=== PATIENT | male | born 1950 | race Caucasian/White ===

== ENCOUNTER 2019-11-10 19:03 | Observation (INO) ==
[2019-11-10] MEDS ORDERED: Ipratropium/Albuterol Neb 3 ML IH ONE (19:25)
[2019-11-10] MEDS ORDERED: 0.9 % Sodium Chloride 500 ML IVC ONE (19:25)
[2019-11-10 19:52] LABS: Basophils % 0.4 %; Hematocrit 47.9 % (37.5-50.1); Hemoglobin 16.2 g/dL (12.9-16.9); Immature Granulocytes % 0.6 % (0-4); Lymphocytes # 0.8 K/mcL (0.6-4.6); Lymphocytes % 8.8 %; Mean Corpuscular HGB Conc 33.8 g/dL (31.6-35.5); Mean Corpuscular Hemoglobin 29.9 pg (28.0-33.3); Mean Corpuscular Volume 88.4 fL (83.0-100.0); Mean Platelet Volume 10.3 fL (9.4-12.4); Monocytes # 1.3 K/mcL (0.0-1.3); Monocytes % 14.6 %; Neutrophils # 6.9 K/mcL (1.6-8.9); Platelet Count 201 K/mcL (140-400); Red Blood Count 5.42 M/mcL (4.19-5.50); Red Cell Distribution Width 11.8 % (11.5-14.5); Segmented Neutrophils % 75.6 %; White Blood Count 9.1 K/mcL (4.3-11.1)
[2019-11-10 20:02] LABS: Prothrombin Time 11.5 Seconds (9.4-12.1)
[2019-11-10 20:18] LABS: Alanine Aminotransferase 13 Units/L (7-52); Albumin 4.6 g/dL (3.5-5.7); Albumin/Globulin Ratio 1.4 (1.1-2.2); Alkaline Phosphatase 86 Units/L (34-104); Aspartate Amino Transferase 38 Units/L (13-39); BUN/Creatinine Ratio 20 (6-26); Bilirubin,Total 0.8 mg/dL (0.3-1.0); Blood Urea Nitrogen 23 mg/dL (8-23); Calcium 9.5 mg/dL (8.6-10.3); Carbon Dioxide 25 mEq/L (23-29); Chloride 90 mEq/L (98-107); Globulin 3.3 g/dL (2.4-3.5); Glucose 474 mg/dL (70-105); Osmolality,Calculated 293 (280-300); Potassium 3.6 mEq/L (3.5-5.1); Sodium 129 mEq/L (136-145); Total Protein 7.9 g/dL (6.4-8.9); Troponin I < 0.03 ng/mL (< 0.04); eGFR For African Americans > 60 (> 60); eGFR For Non-African Americans > 60 (> 60)
[2019-11-10 20:31] LABS: Thyroid Stimulating Hormone 0.321 mcIU/mL (0.340-5.600)
[2019-11-10 21:55] LABS: ABG Base Excess 2 mEq/L (-2 to 3); ABG HCO3 26 mEq/L (21-27); ABG Oxygen Saturation 99 % (95-98); ABG PCO2 40 mmHg (35-45); ABG PH 7.43 pH Units (7.32-7.45); ABG PO2 156 mmHg (85-104); ABG TCO2 27 mEq/L (20-26)
[2019-11-10 22:53] LABS: Bacteria,Urine Few per hpf (None-Few); Bilirubin,Urine Negative (Negative); Blood,Urine Large (Negative); Clarity,Urine Clear (Clear); Color,Urine Light-Yellow (Yellow); Glucose,Urine (UA) >=1000 mg/dL (Normal); Ketones,Urine 20 mg/dL (Negative); Leukocyte Esterase,Urine Negative (Negative); Mucus,Urine Few per lpf (None-Few); Nitrite,Urine Negative (Negative); PH,Urine 5.5 pH Units (5.0-8.0); Protein,Urine 70 mg/dL (Neg-Trace); Specific Gravity,Urine > 1.030 (1.010-1.025); Squamous Epithelial Cell,Urine Few per hpf (None-Few); Urobilinogen,Urine Normal (Normal)
[2019-11-10 23:41] LABS: VBG HCO3 26 mEq/L (21-27); VBG PCO2 42 mmHg (41-51); VBG PH 7.41 pH Units (7.32-7.42); VBG PO2 69 mmHg (25-50)
[2019-11-11] MEDS ORDERED: Albuterol 2.5 MG/3 ML NEBULIZER IH ONE (00:08)
[2019-11-11] MEDS ORDERED: *HR* Promethazine 25 MG/ML VIAL IVP PRN (00:37)
[2019-11-11] MEDS ORDERED: Naloxone 0.4 MG/ML INJ IVP PRN (00:37)
[2019-11-11] MEDS ORDERED: Perflutren Lipid Microsphere 1.3 ML in 0.9 % Sodium Chloride 8.7 ML IVP PRN (00:43)
[2019-11-11] MEDS ORDERED: Dextrose Gel 15 GM/37.5 ML TUBE PO PRN ×2 (00:48)
[2019-11-11] MEDS ORDERED: D5% in Water 1,000 ML IVC PRN (00:48)
[2019-11-11] MEDS ORDERED: *HR* Dextrose 50 % in Water (Vial) 50 ML VIAL IVP PRN (00:48)
[2019-11-11] MEDS ORDERED: Azithromycin 500 MG in 0.9 % Sodium Chloride 250 ML IVPB SCH (02:48)
[2019-11-11 03:26] LABS: BUN/Creatinine Ratio 24 (6-26); Blood Urea Nitrogen 21 mg/dL (8-23); Calcium 8.8 mg/dL (8.6-10.3); Carbon Dioxide 23 mEq/L (23-29); Chloride 96 mEq/L (98-107); Cholesterol 150 mg/dL (< 200); Creatine Kinase 855 Units/L (30-223); Glucose 284 mg/dL (70-105); HDL Cholesterol 30 mg/dL (40-59); LDL Cholesterol,Calculated 83 mg/dL (< 100); Magnesium 1.7 mg/dL (1.6-2.6); Osmolality,Calculated 287 (280-300); Phosphorous 2.1 mg/dL (2.7-4.5); Potassium 3.3 mEq/L (3.5-5.1); Sodium 132 mEq/L (136-145); Triglycerides 183 mg/dL (< 150); eGFR For African Americans > 60 (> 60); eGFR For Non-African Americans > 60 (> 60)
[2019-11-11 03:48] LABS: Folate 17.2 ng/mL (3.0-16.0)
[2019-11-11] MEDS: *HR* Heparin 5,000 UNIT/ML VIAL SQ SCH ×4 (03:54→22:35)
[2019-11-11] MEDS: Insulin LISPRO 300 UNITS/3 ML VIAL SQ SCH ×5 (04:04→22:34)
[2019-11-11 05:19] LABS: Estimated Average Glucose 312 mg/dl
[2019-11-11] MEDS ORDERED: Potassium Chloride Elixir 20 MEQ/15 ML UDC PO ONE (07:44)
[2019-11-11] MEDS: Acetaminophen 325 MG TABLET PO PRN ×2 (08:58→19:41)
[2019-11-11] MEDS: cefTRIAXone 1,000 MG in Water for inj. (sterile) 10 ML IVP SCH (08:58)
[2019-11-11] MEDS: 0.9 % Sodium Chloride 1,000 ML IVC SCH (08:59)
[2019-11-11] MEDS ORDERED: Isovue-370 500 ML BOTTLE IVP ONE (10:38)
[2019-11-11 12:54] LABS: VBG HCO3 25 mEq/L (21-27); VBG PCO2 33 mmHg (41-51); VBG PH 7.48 pH Units (7.32-7.42); VBG PO2 244 mmHg (25-50)
[2019-11-11] MEDS: Cyanocobalamin (B-12) 1,000 MCG/ML VIAL SQ SCH (13:16)
[2019-11-11] MEDS ORDERED: Acyclovir 200 MG CAPSULE PO SCH (16:00)
[2019-11-11] MEDS: methylPREDNISolone 125 MG/2 ML VIAL IVP SCH (16:57)
[2019-11-11] MEDS: Acyclovir 200 MG CAPSULE PO SCH ×2 (16:57→19:40)
[2019-11-11] MEDS: Nystatin SUSP 5 ML UD.LIQ PO SCH ×2 (19:40→19:44)
[2019-11-11] MEDS ORDERED: Insulin DETEMIR 100 UNIT/ML X5UNITS SQ SCH (21:00)
[2019-11-11] MEDS: Insulin DETEMIR 100 UNIT/ML X5UNITS SQ SCH (22:35)
[2019-11-12] MEDS: Acyclovir 200 MG CAPSULE PO SCH ×5 (01:02→20:11)
[2019-11-12] MEDS: 0.9 % Sodium Chloride 1,000 ML IVC SCH (02:31)
[2019-11-12] MEDS: Acetaminophen 325 MG TABLET PO PRN (03:51)
[2019-11-12 05:22] LABS: Basophils # 0.1 K/mcL (0.0-0.2); Basophils % 0.5 %; Hematocrit 45.6 % (37.5-50.1); Hemoglobin 15.1 g/dL (12.9-16.9); Immature Granulocytes % 0.5 % (0-4); Lymphocytes # 1.1 K/mcL (0.6-4.6); Lymphocytes % 11.1 %; Mean Corpuscular HGB Conc 33.1 g/dL (31.6-35.5); Mean Corpuscular Hemoglobin 30.6 pg (28.0-33.3); Mean Corpuscular Volume 92.5 fL (83.0-100.0); Mean Platelet Volume 10.5 fL (9.4-12.4); Monocytes # 0.6 K/mcL (0.0-1.3); Monocytes % 6.3 %; Neutrophils # 7.9 K/mcL (1.6-8.9); Platelet Count 189 K/mcL (140-400); Red Blood Count 4.93 M/mcL (4.19-5.50); Red Cell Distribution Width 11.7 % (11.5-14.5); Segmented Neutrophils % 81.6 %; White Blood Count 9.7 K/mcL (4.3-11.1)
[2019-11-12 05:42] LABS: Alanine Aminotransferase 11 Units/L (7-52); Albumin 3.7 g/dL (3.5-5.7); Albumin/Globulin Ratio 1.4 (1.1-2.2); Alkaline Phosphatase 66 Units/L (34-104); Aspartate Amino Transferase 26 Units/L (13-39); BUN/Creatinine Ratio 27 (6-26); Bilirubin,Total 0.6 mg/dL (0.3-1.0); Blood Urea Nitrogen 21 mg/dL (8-23); Calcium 8.6 mg/dL (8.6-10.3); Carbon Dioxide 28 mEq/L (23-29); Chloride 101 mEq/L (98-107); Globulin 2.7 g/dL (2.4-3.5); Glucose 187 mg/dL (70-105); Osmolality,Calculated 292 (280-300); Potassium 3.9 mEq/L (3.5-5.1); Sodium 137 mEq/L (136-145); Total Protein 6.4 g/dL (6.4-8.9); eGFR For African Americans > 60 (> 60); eGFR For Non-African Americans > 60 (> 60)
[2019-11-12] MEDS: *HR* Heparin 5,000 UNIT/ML VIAL SQ SCH ×3 (05:55→21:37)
[2019-11-12] MEDS: Nystatin SUSP 5 ML UD.LIQ PO SCH ×4 (08:45→21:35)
[2019-11-12] MEDS: Insulin LISPRO 300 UNITS/3 ML VIAL SQ SCH ×4 (08:45→21:36)
[2019-11-12] MEDS: cefTRIAXone 1,000 MG in Water for inj. (sterile) 10 ML IVP SCH (08:48)
[2019-11-12] MEDS: Cyanocobalamin (B-12) 1,000 MCG/ML VIAL SQ SCH (08:52)
[2019-11-12] MEDS ORDERED: methylPREDNISolone 125 MG/2 ML VIAL IVP SCH (09:00)
[2019-11-12] MEDS: Aspirin Enteric Coated 81 MG Tablet PO SCH (09:04)
[2019-11-12] MEDS: Pregabalin 50 MG CAPSULE PO SCH ×3 (09:04→21:36)
[2019-11-12] MEDS: lisinopriL 10 MG TABLET PO SCH (09:04)
[2019-11-12] MEDS: methylPREDNISolone 125 MG/2 ML VIAL IVP SCH (09:10)
[2019-11-12] MEDS: Metoprolol XL (24 HR) Succ 50 MG TAB.ER.24H PO SCH (09:11)
[2019-11-12] MEDS: Budesonide/Formoterol 160/4.5 1 PUFF INH IH SCH ×2 (11:36→21:27)
[2019-11-12] MEDS: Tiotropium 18 MCG inhalation IH SCH (11:36)
[2019-11-12] MEDS: Insulin DETEMIR 100 UNIT/ML X5UNITS SQ SCH (21:38)
[2019-11-13] MEDS: Acyclovir 200 MG CAPSULE PO SCH ×4 (00:09→16:08)
[2019-11-13] MEDS: *HR* Heparin 5,000 UNIT/ML VIAL SQ SCH ×2 (06:22→14:24)
[2019-11-13] MEDS: Budesonide/Formoterol 160/4.5 1 PUFF INH IH SCH (08:05)
[2019-11-13] MEDS: Tiotropium 18 MCG inhalation IH SCH (08:06)
[2019-11-13 08:46] LABS: BUN/Creatinine Ratio 27 (6-26); Blood Urea Nitrogen 21 mg/dL (8-23); Calcium 8.6 mg/dL (8.6-10.3); Carbon Dioxide 30 mEq/L (23-29); Chloride 103 mEq/L (98-107); Glucose 158 mg/dL (70-105); Osmolality,Calculated 292 (280-300); Potassium 3.2 mEq/L (3.5-5.1); Sodium 138 mEq/L (136-145); eGFR For African Americans > 60 (> 60); eGFR For Non-African Americans > 60 (> 60)
[2019-11-13] MEDS: methylPREDNISolone 125 MG/2 ML VIAL IVP SCH (08:52)
[2019-11-13] MEDS: Nystatin SUSP 5 ML UD.LIQ PO SCH ×2 (08:54→12:05)
[2019-11-13] MEDS: lisinopriL 10 MG TABLET PO SCH (08:57)
[2019-11-13] MEDS: Aspirin Enteric Coated 81 MG Tablet PO SCH (08:57)
[2019-11-13] MEDS: Pregabalin 50 MG CAPSULE PO SCH ×2 (08:57→14:25)
[2019-11-13] MEDS: Metoprolol XL (24 HR) Succ 50 MG TAB.ER.24H PO SCH (08:57)
[2019-11-13] MEDS: Cyanocobalamin (B-12) 1,000 MCG/ML VIAL SQ SCH (08:58)
[2019-11-13] MEDS: Insulin LISPRO 300 UNITS/3 ML VIAL SQ SCH ×3 (08:59→16:48)
[2019-11-13] MEDS ORDERED: Lacri-Lube 3.5 GM TUBE BOTH EYES SCH (09:00)
[2019-11-13] MEDS: Artificial Tears SOLN 15 ML BOTTLE RIGHT EYE SCH ×4 (09:01→16:08)
[2019-11-13] MEDS ORDERED: Potassium Chloride Elixir 20 MEQ/15 ML UDC PO ONE ×2 (09:33→11:40)
[2019-11-13 14:02] VITALS: BP 122/69
== END 2019-11-13 17:38 | disposition home or self-care (01) ==
LOC: 3ANU 19:03 → EMEROOARM 19:03 → SUATTDRO 11-11 00:41 → 3ANU 11-11 01:23
PROVIDERS: ADMIT Family Medicine; ATTEND Internal Medicine